=== PATIENT | female | born 1965 | race Caucasian/White ===

== ENCOUNTER 2016-04-23 16:20 | Emergency (ER) | payer OTHER ==
[2016-04-23 17:30] VITALS: BP 148/84
--- NOTE | 2016-04-23 18:38 | UC ---
Throat Pain/Nasal Cornell HPI - HPI Summary HPI Summary: complaint of anasal congestion, cough that started 1 month ago intermittent symptoms during the last month productive cough thick yellow mucous feels pain behind her eyes for the last 4-5 days occasional headache, sore throat d/t coughing, ears feel plugged but not painful denies fever and chills taking nyquil with some relief denies shortness of breath - History of Current Complaint Chief Complaint: UCGeneralIllness Stated Complaint: COUGH/SINUS Time Seen by Provider: 04/23/16 18:31 Hx Obtained From: Patient - Allergies/Home Medications Allergies/Adverse Reactions: Allergies Allergy/AdvReac Type Severity Reaction Status Date / Time No Known Allergies Allergy Verified 04/23/16 17:30 Home Medications: Home Medications Ferrous Sulfate TAB* 325 mg PO DAILY 04/23/16 [History Confirmed 04/23/16] Multiple Vitamins W/ Minerals [One Daily Multivitamin Wo] 1 tab PO DAILY [History Confirmed 04/23/16] Naproxen Sodium 440 mg PO DAILY PRN 04/23/16 [History Confirmed 04/23/16] Omeprazole [Prilosec] 20 mg PO DAILY 04/23/16 [History Confirmed 04/23/16] PMH/Surg Hx/FS Hx/Imm Hx Previously Healthy: Yes Cancer History Of: Denies: Breast Cancer - Surgical History Surgical History: Yes Surgery Procedure, Year, and Place: NOVASURE. TUBAL. DENTAL - Family History Known Family History: Positive: Cardiac Disease - mother, Hypertension - both parents, Diabetes - father - Social History Occupation: Employed Full-time Lives: With Family Alcohol Use: Rare Substance Use Type: None Smoking Status (MU): Former Smoker When Did the Patient Quit Smoking/Using Tobacco: 1985 Review of Systems Constitutional: Negative Skin: Negative Eyes: Negative ENT: Sore Throat, Ear Ache, Nasal Discharge Respiratory: Cough Cardiovascular: Negative Gastrointestinal: Negative Genitourinary: Negative Motor: Negative Neurovascular: Negative Musculoskeletal: Negative Neurological: Negative Psychological: Negative All Other Systems Reviewed And Are Negative: Yes Physical Exam Triage Information Reviewed: Yes Appearance: No Pain Distress, Well-Nourished Vital Signs: Initial Vital Signs Temp 97.6 F 04/23/16 17:24 Pulse 75 04/23/16 17:24 Resp 16 04/23/16 17:24 BP 148/84 04/23/16 17:24 Pulse Ox 100 04/23/16 17:24 Vital Signs Reviewed: Yes Eyes: Positive: Conjunctiva Clear ENT: Positive: Pharyngeal erythema, Nasal congestion, TM bulging, Other: - maxillary sinus tenderness. Negative: TM red, Tonsillar swelling, Tonsillar exudate Neck: Positive: No Lymphadenopathy Respiratory: Positive: Lungs clear, Normal breath sounds, No respiratory distress Cardiovascular: Positive: RRR, No Murmur, Pulses Normal Abdomen Description: Positive: Nontender, Soft Bowel Sounds: Positive: Present Musculoskeletal: Positive: No Edema Neurological: Positive: Alert Psychological Exam: Normal Skin Exam: Normal Throat Pain/Nasal Course/Dx - Differential Dx/Diagnosis Differential Diagnosis/HQI/PQRI: Pharyngitis, Sinusitis, URI Provider Diagnoses: sinusitis Discharge - Discharge Plan Condition: Stable Disposition: HOME Prescriptions: Amoxicillin/Clavulanate TAB* [Augmentin TAB 875*] 875 mg PO BID #20 tab Patient Education Materials: Sinusitis (ED) Referrals: Carrie Otero NP [Primary Care Provider] - Additional Instructions: SINUSITIS What is Sinusitis? Sinusitis is inflammation or infection of the lining of the sinuses behind the bones in your cheeks or forehead. Sinusitis may occur following a common cold, flu, or other infection; allergies; a tooth infection that spreads to the sinuses; swimming in contaminated water; pressure changes in airplanes at high altitudes; violent sneezing or nose blowing or smoking or breathing other peoples smoke. Symptoms Might Include: Nasal Congestion Sneezing Watery eyes, eye irritation, or eye itching Headaches Pressure in the cheeks Wheezing Trouble smelling Sore throat and coughing may occur Treatment Recommendations: Take medicines as prescribed until completely gone. Drink plenty of fluids. Use saline nose spray to thin the mucous and help the sinuses drain. Use a vaporizer or humidifier. Apply warm compresses to the face or forehead several times a day for 10 to 20 minutes. Call Your Doctor or Return Here IF: Your pain increases during treatment. You develop a high temperature. You develop unusual swelling around the eyes. You have difficulty with your vision. You develop a severe headache, earache, or toothache. You develop increased fever or fever that does not respond to medication such as Tylenol?. You have difficulty breathing or catching your breath. You begin to have any other new symptoms that worry you.
== END 2016-04-23 18:44 | disposition home or self-care (01) ==
LOC: UCCORT 16:20
DX: J32.0 Chronic maxillary sinusitis (principal); R05 Cough; H92.09 Otalgia, unspecified ear; Z87.891 Personal history of nicotine dependence
CPT/HCPCS: 99212; G0463

== ENCOUNTER 2017-06-19 09:15 | Emergency (ER) | payer OTHER ==
[2017-06-19 09:34] VITALS: BP 164/108
--- NOTE | 2017-06-19 10:04 | UC ---
Laceration HPI - HPI Summary HPI Summary: 51 yo female s/p lace to left index finger today with scalpel occurred at work Td UTD she is right handed - History Of Current Complaint Chief Complaint: UCLaceration Stated Complaint: FINGER LAC Time Seen by Provider: 06/19/17 09:46 Hx Obtained From: Patient Laceration Location: Finger Mechanism Of Injury: Sharp Trauma Onset/Duration: Sudden Onset Severity: Mild Pain Intensity: 3 Pain Scale Used: 0-10 Numeric Aggravating Factors: Movement Hands: 1 - 1cm long/not actively bleeding Related History: Occupational Injury, Dominant Hand Right - Allergies/Home Medications Allergies/Adverse Reactions: Allergies Allergy/AdvReac Type Severity Reaction Status Date / Time adhesive Allergy Blisters Verified 06/19/17 09:34 blue dye Allergy Hives Verified 06/19/17 09:34 PMH/Surg Hx/FS Hx/Imm Hx Endocrine History: Diabetes - pre Cancer History: Breast Cancer - Surgical History Surgical History: Yes Surgery Procedure, Year, and Place: NOVASURE. TUBAL. DENTAL. breast ca - Family History Known Family History: Positive: Cardiac Disease - mother, Hypertension - both parents, Diabetes - father - Social History Alcohol Use: Rare Substance Use Type: None Smoking Status (MU): Former Smoker Type: Cigarettes Length of Time of Smoking/Using Tobacco: 2 yrs When Did the Patient Quit Smoking/Using Tobacco: 1985 Review of Systems Constitutional: Negative Skin: Negative Eyes: Negative ENT: Negative Respiratory: Negative Cardiovascular: Negative Gastrointestinal: Negative Genitourinary: Negative Motor: Negative Neurovascular: Negative Musculoskeletal: Negative Neurological: Negative Psychological: Negative Is Patient Immunocompromised?: No All Other Systems Reviewed And Are Negative: Yes Physical Exam Triage Information Reviewed: Yes Appearance: Well-Appearing, No Pain Distress, Well-Nourished Vital Signs: Initial Vital Signs Temp 97.5 F 06/19/17 09:29 Pulse 78 06/19/17 09:29 Resp 18 06/19/17 09:29 BP 164/108 06/19/17 09:29 Pulse Ox 100 06/19/17 09:29 Eyes: Positive: Conjunctiva Clear ENT: Positive: Hearing grossly normal. Negative: Nasal congestion, Nasal drainage, Trismus, Muffled voice, Hoarse voice Neck: Positive: Supple Respiratory: Positive: Lungs clear, Normal breath sounds, No respiratory distress, No accessory muscle use Cardiovascular: Positive: RRR, No Murmur Musculoskeletal: Positive: Strength Intact, ROM Intact Neurological: Positive: Alert Psychological Exam: Normal Skin Exam: Other - lac left index finger Laceration Course/Dx - Course/Dx Course Of Treatment: laceration cleaned and dressed - Differential Dx - Laceration/Wound Provider Diagnoses: one cm lceration left index finger (not sutured). elevated BP without diagnosis of hypertension Discharge - Sign-Out/Discharge Documenting (check all that apply): Discharge - Discharge Plan Condition: Stable Disposition: HOME Patient Education Materials: Laceration Without Closure (ED) Forms: *Work Release Referrals: Carrie Otero NP [Primary Care Provider] - 1 Week (for BP recheck) Additional Instructions: leave dressing on 24 hours then gently clean twice daily with soap and water antibiotic oint (I like aquaphor healing ointment or polysporin) bandaid recheck for any concerns call for any questions rest and elevate - Billing Disposition and Condition Condition: STABLE Disposition: HOME
== END 2017-06-19 10:10 | disposition home or self-care (01) ==
LOC: UCEAST 09:15
DX: S61.211A Laceration without foreign body of left index finger without damage to nail, initial encounter (principal); W27.8XXA Contact with other nonpowered hand tool, initial encounter; Y93.9 Activity, unspecified; Y92.89 Other specified places as the place of occurrence of the external cause; Y99.0 Civilian activity done for income or pay; R03.0 Elevated blood-pressure reading, without diagnosis of hypertension; R73.03 Prediabetes; Z85.3 Personal history of malignant neoplasm of breast; Z87.891 Personal history of nicotine dependence
CPT/HCPCS: 99212; G0463

== ENCOUNTER 2019-05-28 16:59 | Emergency (ER) | payer OTHER ==
[2019-05-28 17:26] VITALS: BP 139/93
[2019-05-28] MEDS ORDERED: Tetan/Diph/Pertus SYR(Tdap)* 0.5 ML SYR(BOOSTRIX) use SYR contains LATEX IM ONE (17:42)
[2019-05-28] MEDS ORDERED: Ibuprofen TAB* 600 MG PO ONE (17:42)
--- OUTSIDE RECORDS SUMMARY | 2019-05-28 17:57 | XMS REPORT | Continuity of Care Document ---
:1965 External Reference #:[id number] Author Name Luca Otero FNP Address [address] [place] [id number] Care Team Providers Name Role Phone Luca Otero SECURITIES RESEARCH ANALYST - Nurse Care Team Information Vice President Safety [phone] Practitioner Jermaine Escobar MD - Hematology & Care Team Information Vice President Safety Oncology Bridget Parnell M.D. - Surgery Care Team Information Vice President Safety Vincent Jaime M.D. - Plastic Care Team Information Vice President Safety [phone] Surgery Problems Active Problems Provider Date Infiltrating duct carcinoma of breast Luca Otero FNP Onset: 2017 Note: left breast Document: 04/08/17 - Mammogram Result Diabetes mellitus Luca Otero FNP Onset: 10/09/2017 Female stress incontinence Luca Otero FNP Onset: 06/19/2013 Morbid obesity Luca Otero FNP Onset: 03/28/2017 Social History Type Date Description Comments Sex Unknown Tobacco Use Start: Unknown End: Former Cigarette Smoker teenager Unknown ETOH Use Rarely consumes alcohol Tobacco Use Start: Unknown End: Patient is a former smoker started age 16/ 17 - Unknown quit age 19 Smoking Status Reviewed: 05/04/19 Patient is a former smoker started age 16/ 17 - quit age 19 Allergies, Adverse Reactions, Alerts Active Allergies Reaction Severity Comments Date Lymphazurin Dye Facial swelling, Hives 05/04/2019 Cephalexin Hives 05/04/2019 Inactive Allergies NKDA 06/19/2012 Medications Active Medications SIG Qnty Indications Ordering Date Provider Metformin HCL Take One Tablet 90tabs E11.65 Clune, 02/04/2018 500mg By Mouth Once A Jenniferleigh, Tablets Day FOUNDRY MOLDER Freestyle Lite Blood use once daily 1units E11.65 Clune, 02/04/2018 Glucose Monitoring for diabetic Luca System testing dx: FOUNDRY MOLDER Device e11.65 Freestyle Lite Test use twice daily 100units E11.65 Clune, 02/04/2018 to test blood Luca Strips sugars dx: e11.9 FOUNDRY MOLDER Lancets use twice daily 100units E11.65 Clune, 02/04/2018 28G Misc for blood sugar Luca, testing dx e11.9 FOUNDRY MOLDER Omeprazole Take One Capsule 90caps Clune, 20mg By Mouth Every Jenniferleigh, Capsules DR Day FOUNDRY MOLDER Anastrozole Take One Tablet Unknown 1mg By Mouth Every Tablets Day Vitamin D3 1 by mouth every Unknown 5000Unit day Capsules Ferrous Sulfate Iron 1 by mouth every Unknown day 200(65Fe) mg Tablets Tumeric 1 capsule daily Unknown Immunizations CPT Code Status Date Vaccine Lot # [id number] Given 10/20/2018 Tdap injection [id number] Given 05/01/2017 Tdap injection [id number] Given 08/17/2004 Tetnus Injection Vital Signs Date Vital Result Comment 05/04/2019 9:13am BP Systolic 141 mmHg BP Diastolic 92 mmHg Body Temperature 98.1 F Heart Rate 79 /min Respiratory Rate 18 /min Height 64.5 inches 5'4.50" Weight 241.50 lb BMI (Body Mass Index) 40.8 kg/m2 BSA (Body Surface Area) 2.13 m2 [place] body weight in kilograms 56 kg O2 % BldC Oximetry 98 % Ra 10/20/2018 3:25pm BP Systolic 122 mmHg BP Diastolic 80 mmHg Body Temperature 98.5 F Heart Rate 85 /min Respiratory Rate 16 /min Height 64.5 inches 5'4.50" Weight 244.00 lb BMI (Body Mass Index) 41.2 kg/m2 BSA (Body Surface Area) 2.14 m2 [place] body weight in kilograms 56 kg O2 % BldC Oximetry 97 % Results Test Acquired Date Facility Test Result H/L Range Note Comprehensive 05/04/2019 [facility] [address] Glucose 89 mg/dL Normal 74-106 1 Metabolic Panel [address] [place], [place] [id number] [phone] BUN 19 mg/dL High 7-18 Creatinine 1.1 mg/dL Normal 0.6-1.3 Glom Filtration Rate, Estimate 55 mL/min >60 If >60 mL/min >60 2 BUN/Creat 17.2 ratio Sodium 140 mmol/L Normal 136-145 Potassium 4.0 mmol/L Normal 3.5-5.1 Chloride 112 mmol/L High 98-107 Carbon Dioxide 25 mmol/L Normal 21-32 Anion Gap 3 mEq/L Low 8-16 Calcium 9.7 mg/dL Normal 8.5-10.1 Total Protein 7.9 g/dL Normal 6.4-8.2 Albumin 4.4 g/dL Normal 3.4-5.0 Globulin 3.5 g/dL Normal 1.9-4.3 Alb/Glob 1.3 ratio Bilirubin,Total 0.5 mg/dL Normal 0.2-1.0 Sgot/Ast 28 U/L Normal 15-37 SGPT/Alt 49 U/L Normal 12-78 Alkaline Phosphatase 99 U/L Normal 45-117 Glycohemoglobin 05/04/2019 [facility] [address] Glycohemoglobin 5.8 % Normal 4.2-6.[address] [place] [address] (A1c) [place], [place] [id number] [phone] eAG 120 mg/dL Microalbumin,Random 05/04/2019 [facility] [address] Microalbumin,Urine 16.0 < 20.[address] [place] [address] mg/L [place], [place] [id number] [phone] Urine Dipstick 05/04/2019 [facility] Color yellow Yellow Ua Clarity clear Clear Ua Leuko negative Negative Ua Nitrite negative Negative Ua Urobilinogen 0.2 0.2 - 1.0 E.U./dL Ua Protein 0.15 High Negative Ua PH 5.5 Low 6.5-7.5 Ua Blood negative Negative Ua Specific [place] 1.030 1.010-1.030 Ua Ketones negative Negative Ua Bilirubin negative Negative Ua Glucose negative Negative 1 E11.65 2 Note: Persistent reduction for 3 months or more in an eGFR <60 mL/min/1.73 m2 defines CKD. Patients with eGFR values >/=60 mL/min/1.73 m2 may also have CKD if evidence of persistent proteinuria is present. The original MDRD equation for estimated GFR is not valid for patients less than 18 years of age. Additional information may be found at www.kdoqi.org. 3 Elevated levels of HbA1c suggest the need for more aggressive treatment of glycemia. The [place] [employer] recommends that a primary goal of therapy should be a HbA1c of <7% and that physicians should re-evaluate the treatment regimen in patients with HbA1c values consistently >8%. Procedures Date Code Description Status 02/04/2018 755501976 Diabetic Foot Exam Completed 01/09/2018 [id number] Bone Mineral Density Test Completed 04/08/2017 [id number] Mammogram Completed 03/28/2017 [id number] Mammogram Completed Medical Devices Description No Information Available Encounters Type Date Location Provider Dx Diagnosis Office Visit 05/04/2019 [facility] Branden E11.65 Type 2 diabetes 9:15a [facility] [place] [facility] Luca, mellitus with PRANEETH hyperglycemia Z71.1 Person w feared hlth complaint in whom no diagnosis is made Assessments Date Code Description Provider 05/04/2019 E11.65 Type 2 diabetes mellitus with Luca Otero FNP hyperglycemia 05/04/2019 Z71.1 Person with feared health complaint in Luca Otero FNP whom no diagnosis is made Plan of Treatment Future Appointment(s):08/04/2019 3:30 pm - Luca Otero FNP at [facility]05/04/2019 - Luca Otero FNPE11.65 Type 2 diabetes mellitus with hyperglycemiaComments:Sugars of 81-110 fasting are going nice! Keep up the good control with exercise! Will get A1C donetoday for baselineFollow up:3 months f/u of DM 30 minZ71.1 Person with feared health complaint in whom no diagnosis is madeComments:urine looks great - no hematuria (blood) in the urine, no white blood cells or nitriles. No CVA - flank pain most likely musculoskeletal as it is dependant on positionWill get BUN/ creatinine and GFR for further Functional Status Functional Condition Comment Date Status Independent with all ADL's Active Glasses for reading only Active Complete upper dentures Active Mental Status Description No Information Available Referrals Refer to Reason for Referral Status Appt Date Shelly Arevalo, SECURITIES RESEARCH ANALYST 53 YOF with PMhx of breast Received Complete cancer needs screening colonoscopy [address] [place] [id number] [phone]
[2019-05-28] MEDS ORDERED: Lidocaine 2% PF * 5 ML VIAL INJ ONE ×2 (19:48→20:09)
--- NOTE | 2019-05-28 19:48 | UC ---
Minor Trauma HPI - HPI Summary HPI Summary: 53 yo female with DM presents after a fall got tangled in a dog lease inversion injury left ankle laceration right knee no CABELLO or neck pain - History of Current Complaint Chief Complaint: UCLowerExtremity Stated Complaint: RIGHT KNEE LACERATION, LEFT ANKLE INJURY S/P FALL Time Seen by Provider: 05/28/19 19:37 Hx Obtained From: Patient Onset/Duration: Sudden Onset Onset Of Pain: Immediate Severity Initially: Severe Severity Currently: Severe Pain Intensity: 8 Pain Scale Used: 0-10 Numeric Mechanism Of Injury: Fall From A Standing Position Aggravating Factor(s): Ambulation Alleviating Factor(s): Rest Associated Signs And Symptoms: Positive: Swelling Body - Head: 1 - laceration 2 - lat tenderness and STS - Allergies/Home Medications Allergies/Adverse Reactions: Allergies Allergy/AdvReac Type Severity Reaction Status Date / Time adhesive Allergy Blisters Verified 05/28/19 17:19 blue dye Allergy Hives Verified 05/28/19 17:19 cephalexin Allergy Rash Verified 05/28/19 17:19 Antibiotic Starts with "C" Allergy Rash Uncoded 05/28/19 17:19 Home Medications: Home Medications Omeprazole [Prilosec] 20 mg PO DAILY 04/23/16 [History Confirmed 05/28/19] Anastrozole (NF) [Arimidex (NF)] 1 mg PO DAILY 05/28/19 [History Confirmed 05/27] Cholecalciferol (Vitamin D3) [Natural Vitamin D-3] 10,000 unit PO DAILY [History Confirmed 05/28/19] Ferrous Sulfate TAB* 325 mg PO DAILY 05/28/19 [History Confirmed 05/28/19] metFORMIN* [Glucophage 500 MG TAB *] 500 mg PO DAILY 05/28/19 [History Confirmed 05/28/19] PMH/Surg Hx/FS Hx/Imm Hx Previously Healthy: Yes Endocrine History: Diabetes, Dyslipidemia GI/ History: Gastroesophageal Reflux Cancer History: Breast Cancer - Surgical History Surgical History: Yes Surgery Procedure, Year, and Place: Hysterectomy, 2019; NOVASURE. TUBAL. DENTAL. breast ca - Family History Known Family History: Positive: Cardiac Disease - mother, Hypertension - both parents, Diabetes - father - Social History Alcohol Use: Rare Substance Use Type: None Smoking Status (MU): Former Smoker Type: Cigarettes Length of Time of Smoking/Using Tobacco: 2 Years When Did the Patient Quit Smoking/Using Tobacco: 1985 - Immunization History Most Recent Tetanus Shot: "I don't know." Review of Systems All Other Systems Reviewed And Are Negative: Yes Constitutional: Positive: Negative Skin: Positive: Other - see hpi Eyes: Positive: Negative ENT: Positive: Negative Respiratory: Positive: Negative Cardiovascular: Positive: Negative Gastrointestinal: Positive: Negative Genitourinary: Positive: Negative Motor: Positive: Negative Neurovascular: Positive: Negative Musculoskeletal: Positive: Negative Neurological/Mental Status: Positive: Negative Psychological: Positive: Negative Physical Exam Triage Information Reviewed: Yes Appearance: Well-Appearing, No Pain Distress, Well-Nourished Vital Signs: Initial Vital Signs Temp 98.8 F 05/28/19 17:17 Pulse 85 05/28/19 17:17 Resp 18 05/28/19 17:17 BP 139/93 05/28/19 17:17 Pulse Ox 100 05/28/19 17:17 Vital Signs Reviewed: Yes Eyes: Positive: Conjunctiva Clear ENT: Positive: Hearing grossly normal, Uvula midline. Negative: Nasal congestion, Nasal drainage, Tonsillar swelling, Tonsillar exudate, Trismus, Muffled voice, Hoarse voice Neck: Positive: Supple, Nontender Respiratory: Positive: Lungs clear, Normal breath sounds, No respiratory distress, No accessory muscle use Cardiovascular: Positive: RRR, No Murmur Musculoskeletal: Positive: Edema @ - left lat malleolus Neurological: Positive: Alert Psychological Exam: Normal Skin Exam: Other - see image Procedures - Laceration/Wound Repair 1 Location: Other - right knee Description: Irregular Anesthesia: Local, 2.0%, Lido Length, Depth and Shape: curvilinear, 2.2 cm L, 2 mm wide 4 mm deep Betadine Prep?: Yes Irrigated w/ Saline (ccs): 200 Laceration/Wound Explored: clean Closure: Single Layer Suture Type: Nylon Number of Sutures: 5 Layer Closure?: No Sterile Dressing Applied?: Yes Minor Trauma Course/Dx - Differential Dx/Diagnosis Provider Diagnosis: Fall, Laceration of right knee, Contusion of right knee, Left ankle sprain Discharge ED - Sign-Out/Discharge Documenting (check all that apply): Patient Departure All imaging exams completed and their final reports reviewed: Yes - Discharge Plan Condition: Stable Disposition: HOME Patient Education Materials: Laceration (ED), Ankle Sprain (ED), R.I.C.E. Treatment (ED) Referrals: Lg Niño MD [Medical Doctor] - 1 Week (I suggest you follow up with Dr. Niño in 1 week for your ankle. He has offices in [place] and [place]) Carrie Otero NP [Primary Care Provider] - 2 Weeks (sutures out in 12- 14 days) Additional Instructions: rest elevate ice gently clean laceration twice daily with soap and water gently dry apply thin film of aquaphor healing oint dressing use knee immobilizer and crutches until ankle better sutures out in about 12-14 days Recheck [place] for concerns of infection - Billing Disposition and Condition Condition: STABLE Disposition: Home
== END 2019-05-28 21:25 | disposition home or self-care (01) ==
LOC: UCCORT 16:59
DX: S81.011A Laceration without foreign body, right knee, initial encounter (principal); S80.01XA Contusion of right knee, initial encounter; S93.402A Sprain of unspecified ligament of left ankle, initial encounter; E11.9 Type 2 diabetes mellitus without complications; K21.9 Gastro-esophageal reflux disease without esophagitis; Z88.1 Allergy status to other antibiotic agents; Z91.09 Other allergy status, other than to drugs and biological substances; Z91.041 Radiographic dye allergy status; Z85.3 Personal history of malignant neoplasm of breast; Z79.84 Long term (current) use of oral hypoglycemic drugs; Z79.899 Other long term (current) drug therapy; Z87.891 Personal history of nicotine dependence; Z23 Encounter for immunization; W19.XXXA Unspecified fall, initial encounter; X50.9XXA Other and unspecified overexertion or strenuous movements or postures, initial encounter; Y92.9 Unspecified place or not applicable
CPT/HCPCS: 12001; 90471; 90715; 99213; A9270-GY; G0463